=== PATIENT | male | born 1975 | race Caucasian/White ===

== ENCOUNTER 2019-12-09 12:41 | Outpatient (CLI) | payer SELFPAY ==
--- NOTE | 2019-12-09 12:46 | CT_ITS ---
WS: [id number] CT LUMBAR SPINE, noncontrast. HISTORY: Pseudoarthrosis following spinal fusion. TECHNIQUE: Contiguous 2.5 mm axial imaging are performed. Sagittal and coronal reformats are submitte d and reviewed. All CT scans at [facility] use at least one of these dose optimization te chniques: automated exposure control; mA and/or kV adjustment per patient size (includes targeted exa ms where dose is matched to clinical indication); or iterative reconstruction. IV contrast: None DLP: 2142.33 mGycm COMPARISON: 12/11/2018 Posterior lumbar fusion extends from L3 to L5. Pedicle screws and interconnecting rods are unchanged. No increase in the lucency surrounding the pedicle screws. No loosening or fracture. Laminectomy def ects at L3-4 and on the RIGHT at L4-5. L1-2: Normal. L2-3: Mild annular disc bulge and mild osteophytic ridging. No significant stenosis. L3-4: Mild annular disc bulging with very mild encroachment upon the ventral thecal sac with no steno sis. Mild facet joint arthritis. L4-5: Diffuse annular disc bulging and facet arthritis. No significant stenosis. L5-S1: Mild annular disc bulging with a central and LEFT paracentral disc osteophyte protrusion with calcification. Mild contact on the LEFT S1 nerve root and mild encroachment into the RIGHT subarticul ar recess. Moderate bilateral foraminal stenosis is unchanged. Mild atherosclerosis aorta. CT/CT lumbar spine wo con* [id number] IMPRESSION: 1. Status post L3-L5 pedicle screw fixation is intact with no complications. 2. Moderate bilateral foraminal stenosis at L5-S1 is unchanged. 3. Small central and LEFT paracentral disc osteophyte complex at L5-S1 with mi ld encroachment upon the thecal sac. No interval change.
== END 2019-12-09 12:42 | disposition home or self-care (01) ==
LOC: RADWPI 12:45
PROVIDERS: Family Provider Family Medicine; PCP Family Medicine; Visit Provider Specialist
DX: M96.0 Pseudarthrosis after fusion or arthrodesis (principal); M48.07 Spinal stenosis, lumbosacral region; M25.78 Osteophyte, vertebrae
CPT/HCPCS: 72131

== ENCOUNTER → 2019-12-11 11:01 | Outpatient (BNVA) | payer SELFPAY | PROVIDERS: Family Provider Family Medicine; PCP Family Medicine; Visit Provider Licensed Practical Nurse | DX: M96.0 Pseudarthrosis after fusion or arthrodesis (principal) | CPT/HCPCS: 99213 ==

== ENCOUNTER 2020-07-20 05:07 | Emergency (ER) | payer SELFPAY ==
[2020-07-20 05:10] VITALS: BP 255/155; PULSE 86; RESP 18; TEMP 36.4; O2SAT 100; BMI 36.6
--- NOTE | 2020-07-20 05:15 | CTR_ITS ---
PROCEDURE INFORMATION: Exam: CT Abdomen And Pelvis Without Contrast Exam date and time: 07/20/2020 5:17 AM Age: 45 years old Clinical indication: Abdominal pain; Right; Prior surgery; Surgery type: Appy. Lumbar fusion. ; Patient HX: RT flank pain; Additional info: Right flank pain TECHNIQUE: Imaging protocol: Computed tomography of the abdomen and pelvis without contrast. Radiation optimization: All CT scans at this facility use at least one of these dose optimization techniques: automated exposure control; mA and/or kV adjustment per patient size (includes targeted exams where dose is matched to clinical indication); or iterative reconstruction. COMPARISON: No relevant prior studies available. RADIATION DOSE METRICS: Total DLP (mGy-cm): 2170.12 FINDINGS: Lungs: Patchy minimal haziness in the lung bases suggesting atelectasis. Heart: Cardiomegaly. No pericardial effusion. Liver: Unremarkable. No apparent mass. Gallbladder and bile ducts: No calcified gallstones or biliary ductal dilatation. Pancreas: Unremarkable pancreas. Spleen: No splenomegaly. Adrenal glands: Peripheral density of -15 HU around the lobulated central density of 21 HU in the 2.3 x 2.2 cm left adrenal mass. No right adrenal mass. Kidneys and ureters: No hydronephrosis or suggestion of a renal mass. No ureteral stone. Stomach and bowel: Increased fat in the wall of the stomach, duodenum, multiple small bowel loops and the right colon. No increased fat in a segment of small bowel in the right mid abdomen between 2 areas of increased mural fat. Elongation of the sigmoid colon into the middle to lower abdomen. Mild diverticulosis of the distal descending and proximal sigmoid colon. Appendix: History of an appendectomy. Intraperitoneal space: No free air. Vasculature: Atherosclerosis. No aortic aneurysm. Two right renal arteries. Lymph nodes: Periportal adenopathy. No enlarged nodes elsewhere. Urinary bladder: Unremarkable as visualized. Reproductive: Unremarkable as visualized. Bones/joints: Bilateral pedicle screws in L3 through L5 with bilateral posterior rods connecting them. Old compression fractures. Degeneration of several discs. Subchondral defects in the left superior acetabulum. Soft tissues: Density of -10 HU in the 1.8 x 3.2 cm skin-based mass in the right anterior mid abdominal wall; no haziness or stranding in the fat around this mass and no skin thickening overlying it. CT/CT kidney stone [id number] IMPRESSION: 1. Increased fat in the rapp of multiple parts of the GI tract suggesting chronic inflammation. Apparent skip lesion in the right abdominal small bowel, therefore Crohn's disease not excluded. 2. Left adrenal mass probably containing areas of fat suggesting an adenoma or myelolipoma. 3. Cardiomegaly. 4. Periportal adenopathy. 5. Prior lumbar surgery and other bony findings detailed above. 6. Right anterior abdominal wall skin-based mass possibly representing a sebaceous cyst. Other findings detailed above. COMMENTS: Consistent with the [employer]'s Incidental Findings Committee white paper (J Am Saige Radiol 2017): For any incidental adrenal lesion greater than 1 cm but less than 4 cm classified in this report as benign, likely benign, or containing fat (including classification as an adenoma or myelolipoma), no follow-up imaging is recommended per consensus recommendations based on imaging criteria. Further lab evaluation could be pursued if warranted based on clinical findings. Radiation Dose CTDIVOL = (mGy): DLP = 2170.12 (mGy-cm)
--- NOTE | 2020-07-20 05:15 | ED_ITS ---
Documented by User: Andrea Owusu MD 07/20/20 05:18 HPI - Abdominal Pain General: Chief Complaint: Abdominal Pain Stated Complaint: pain in right side Time Seen by Provider: 07/20/20 05:08 Source: patient Mode of arrival: ambulatory Limitations: no limitations History of Present Illness: HPI narrative: 45-year-old male states that he woke up suddenly 1 hour ago with right flank pain and right side abdominal pain that was severe in nature. States his pain is a 10 out of 10 is in obvious pain. He has nausea no vomiting. He denies any history of pain like this denies any history of kidney stone. Patient denies fever. He denies any dysuria. Patient is hypertensive here he states that he has not taken his blood pressure medicine in quite some time. Used to be on amlodipine hydrochlorothiazide and metoprolol. Associated Symptoms: Denies chills and fever(s) Review of Systems Const: Denies: fever(s), chills, body aches or change in appetite Eyes: Denies: blurry vision or eye discomfort ENMT: Denies: throat pain or dental pain Card: Denies: chest pain Resp: Denies: dyspnea GI: Reports: abdominal pain : Reports: flank pain Musc: Denies: neck pain or back pain Skin/Breast: Denies: rash Neuro: Denies: headache(s) Psych: Denies: depression Edmundo/Lymph: Denies: easy bruising All/Imm: Denies: urticaria PFS ED PFSH: Medical History (Updated 07/20/20 @ 08:02 by Bijan Navarro DO) Hypertension Lumbar disc disease Pseudarthrosis following spinal fusion Tobacco use disorder Surgical History H/O spinal fusion 05/07/2017 Dr. Venus Alanis: multilevel discectomy, L3-L4, L4-L5 pedicle screw?jose fixation and transverse process fusion. Family History Family/Other Hypertension Father Stroke Myocardial infarct Family/Other Myocardial infarct Social History Smoking and tobacco status: current every day smoker cigarettes Packs smoked per day: 1.5 Alcohol intake: never Household members: spouse Marital status: Current occupational status: unemployed History of recent travel: No Physical Exam Const: COMMON NORMALS: no acute distress, patient oriented x3 and healthy appearing OTHER: in pain HENMT: COMMON NORMALS: normocephalic and atraumatic HEAD & SCALP: normocephalic and atraumatic Eye: COMMON NORMALS: Equal, round and reactive pupils present and EOMs intact bilaterally PUPIL: Yes Equal, round and reactive pupils present Neck/C-Spine: COMMON NORMALS: full ROM and supple Chest: COMMONS NORMALS: normal inspection of the chest and normal palpation of entire chest wall Resp: COMMON NORMALS: normal respiratory effort, No retractions, No use of accessory muscles and clear to auscultation bilaterally AUSCULTATION: clear to auscultation bilaterally Cardio: COMMON NORMALS: regular rate, regular rhythm and No murmurs present (Cardio) RATE: regular rate RHYTHM: regular rhythm GI: COMMON NORMALS: Normal to inspection, nondistended, normoactive bowel sounds present, Soft to palpation, non-tender and no masses PALPATION: Yes Soft to palpation Extremity: COMMON NORMALS: normal to inspection and full ROM Neuro: COMMON NORMALS: patient oriented x3, moves all extremities and no focal motor deficits Psych: COMMON NORMALS: mental status grossly normal, Normal thought process present and cooperative THOUGHT PROCESS: Normal thought process present Skin: COMMON NORMALS: no rashes or lesions noted and no wounds GENERAL SKIN EXAM: no rashes or lesions noted Course Vital Signs: Vital signs: Vital Signs Temperature 97.6 F 07/20/20 05:10 Pulse Rate 73 07/20/20 08:26 Respiratory Rate 16 07/20/20 08:26 Blood Pressure 146/67 07/20/20 08:26 Pulse Oximetry 95 07/20/20 08:26 MDM - Abdominal Pain Lab Data: Labs: Lab Results 07/20/20 07/20/20 07/20/20 Range/Units 00:59 05:15 05:15 WBC 16.0 H (4.0-10.0) 10^3/ uL RBC 5.85 H (4.1-5.3) 10^6/u L Hgb 16.7 H (11.7-16.6) g/dL Hct 49.7 (42.0-52.0) % MCV 85.0 (80-94) fL MCH 28.5 (28.0-34.0) pg MCHC 33.6 (30.0-36.0) g/dL RDW 13.2 (12.1-15.1) % Plt Count 187 (130-400) 10^3/c mm MPV 11.9 H (7.4-10.4) fL Neut % (Auto) 77.3 % Lymph % (Auto) 14.6 % [place] % (Auto) 5.9 % Eos % (Auto) 1.4 % Baso % (Auto) 0.4 % Neut # (Auto) 12.34 H (1.8-7.7) 10^3/u L Lymph # (Auto) 2.3 (0.8-4.8) 10^3/u L [place] # (Auto) 0.9 (0.2-0.9) 10^3/u L Eos # (Auto) 0.2 (0.0-0.8) 10^3/u L Baso # (Auto) 0.1 (0.0-0.1) 10^3/u L Nucleated RBC % (a uto) 0 % Nucleated RBCs # 0.0 /100WBC Sodium 138 (136-145) mmol/L Potassium 3.9 (3.5-5.1) mmol/L Chloride 100 (98-107) mmol/L Carbon Dioxide 27 (22-29) mmol/L Anion Gap 14.9 (5-19) BUN 16 (6-20) mg/dL Creatinine 1.0 (0.7-1.2) mg/dL GFR Calculation 81.2 L (90-130) mL/min Glucose 125 H (65-115) mg/dL Calculated Osmolal ity 289 (285-295) mOsm/k g Calcium 9.6 (8.5-10.5) mg/dL Total Bilirubin 0.5 (0.15-1.2) mg/dL AST 19 (0-40) U/L ALT 33 (0-41) U/L Alkaline Phosphata se 117 (40-130) IU/L Total Protein 7.5 (6.6-8.7) g/dL Albumin 4.8 (3.5-5.2) g/dL Globulin 2.7 (1.3-4.6) g/dL Lipase 219 H (13-60) U/L Urine Color Yellow (Yellow) Urine Appearance Clear (CLEAR) Urine pH 6.5 (5-7) Ur Specific Gravit y 1.015 (1.005-1.030) Urine Protein Neg (Negative) Urine Glucose (UA) Norm (Normal) Urine Ketones Negative (Negative) Urine Blood Neg (Negative) Urine Nitrate Negative (Negative) Urine Bilirubin Neg (Negative) Urine Urobilinogen Norm (Negative) mg/dL Ur Leukocyte Hamida ase Negative (Negative) Discharge Plan Discharge Patient Disposition: Home Clinical Impression: Abdominal pain, Irritable bowel syndrome (IBS), Hypertension Condition: Stable Prescriptions: New hydrocodone-acetaminophen 5-325 mg tablet 1 tab PO Q6H PRN (Reason: pain) Qty: 15 RF: 0 Zofran 4 mg tablet 4 mg PO Q6H PRN (Reason: nausea and vomiting) Qty: 10 RF: 0 amlodipine 10 mg tablet 10 mg PO DAILY Qty: 30 RF: 0 benazepril 40 mg tablet 40 mg PO DAILY Qty: 30 RF: 0 hydrochlorothiazide 25 mg tablet 25 mg PO DAILY Qty: 30 RF: 0 Toprol XL 25 mg tablet extended release 24 hr 25 mg PO DAILY Qty: 30 RF: 0 No Action benazepril 40 mg tablet 40 mg PO DAILY 30 Days Qty: 30 RF: 1 hydrochlorothiazide 25 mg tablet 25 mg PO QAM 30 Days Qty: 30 RF: 1 metoprolol succinate 25 mg tablet extended release 24 hr 25 mg PO DAILY 30 Days Qty: 30 RF: 1 amlodipine 10 mg tablet 10 mg PO DAILY 30 Days Qty: 30 RF: 1 Discharge Orders: Discharge ED (Routine); Ordered 07/20/20 Ordered By: Bijan Navarro Referrals: Justyna Calhoun DO [Primary Care Provider] - Discharge Diet: Clear Liquid Discharge Activity: Increase activity as tolerated Patient Instructions: Abdominal Pain (ED), Opioid Safety Activity Restrictions/Additional Instructions: Liquid diet for 24 to 48 hours and advance as tolerated. Recommend you restart your blood pressure medications immediately. Case management will make arrangements for you to see surgery for your abdominal pain and possible endoscopy. Sign Out Sign Out Data: Patient Sign Out occurred on 07/20/20 at 05:54. Patient's care was discussed, and care was transferred from to Bijan Navarro DO. Coding Level of Care Code ED Talent Acquisition Program Manager for Chg Fwd Exam Comprehensive Documented by User: Bijan Navarro DO 07/20/20 08:51 HPI - Abdominal Pain General: Chief Complaint: Abdominal Pain Stated Complaint: pain in right side Time Seen by Provider: 07/20/20 05:08 PFSH ED PFSH: Medical History (Updated 07/20/20 @ 08:02 by Bijan Navarro DO) Hypertension Lumbar disc disease Pseudarthrosis following spinal fusion Tobacco use disorder Surgical History H/O spinal fusion 05/07/2017 Dr. Venus Alanis: multilevel discectomy, L3-L4, L4-L5 pedicle screw?jose fixation and transverse process fusion. Family History Family/Other Hypertension Father Stroke Myocardial infarct Family/Other Myocardial infarct Social History Smoking and tobacco status: current every day smoker cigarettes Packs smoked per day: 1.5 Alcohol intake: never Household members: spouse Marital status: Current occupational status: unemployed History of recent travel: No Course Vital Signs: Vital signs: Vital Signs Temperature 97.6 F 07/20/20 05:10 Pulse Rate 73 07/20/20 08:26 Respiratory Rate 16 07/20/20 08:26 Blood Pressure 146/67 07/20/20 08:26 Pulse Oximetry 95 07/20/20 08:26 MDM - Abdominal Pain MDM Narrative: Medical decision making narrative: Viewed CT findings with him. Given hydralazine all of his p.o. blood pressure medicines will restart p.o. blood pressure medicines and we did discharge him home with a plan to follow-up with surgery for endoscopy based on the CT findings and Jeannie establish with a primary care for the hypertension. His lipase elevated but he has no elevation of his liver enzymes and he has no left upper quadrant abdominal pain he denies drinking any alcohol. He will need follow-up on that as well his symptoms are improved at this time. Liver functions are normal he has no other findings on his CT I think we can discharge him home at this time with the appropriate follow-ups. Lab Data: Labs: Lab Results 07/20/20 07/20/20 07/20/20 Range/Units 00:59 05:15 05:15 WBC 16.0 H (4.0-10.0) 10^3/ uL RBC 5.85 H (4.1-5.3) 10^6/u L Hgb 16.7 H (11.7-16.6) g/dL Hct 49.7 (42.0-52.0) % MCV 85.0 (80-94) fL MCH 28.5 (28.0-34.0) pg MCHC 33.6 (30.0-36.0) g/dL RDW 13.2 (12.1-15.1) % Plt Count 187 (130-400) 10^3/c mm MPV 11.9 H (7.4-10.4) fL Neut % (Auto) 77.3 % Lymph % (Auto) 14.6 % [place] % (Auto) 5.9 % Eos % (Auto) 1.4 % Baso % (Auto) 0.4 % Neut # (Auto) 12.34 H (1.8-7.7) 10^3/u L Lymph # (Auto) 2.3 (0.8-4.8) 10^3/u L [place] # (Auto) 0.9 (0.2-0.9) 10^3/u L Eos # (Auto) 0.2 (0.0-0.8) 10^3/u L Baso # (Auto) 0.1 (0.0-0.1) 10^3/u L Nucleated RBC % (a uto) 0 % Nucleated RBCs # 0.0 /100WBC Sodium 138 (136-145) mmol/L Potassium 3.9 (3.5-5.1) mmol/L Chloride 100 (98-107) mmol/L Carbon Dioxide 27 (22-29) mmol/L Anion Gap 14.9 (5-19) BUN 16 (6-20) mg/dL Creatinine 1.0 (0.7-1.2) mg/dL GFR Calculation 81.2 L (90-130) mL/min Glucose 125 H (65-115) mg/dL Calculated Osmolal ity 289 (285-295) mOsm/k g Calcium 9.6 (8.5-10.5) mg/dL Total Bilirubin 0.5 (0.15-1.2) mg/dL AST 19 (0-40) U/L ALT 33 (0-41) U/L Alkaline Phosphata se 117 (40-130) IU/L Total Protein 7.5 (6.6-8.7) g/dL Albumin 4.8 (3.5-5.2) g/dL Globulin 2.7 (1.3-4.6) g/dL Lipase 219 H (13-60) U/L Urine Color Yellow (Yellow) Urine Appearance Clear (CLEAR) Urine pH 6.5 (5-7) Ur Specific Gravit y 1.015 (1.005-1.030) Urine Protein Neg (Negative) Urine Glucose (UA) Norm (Normal) Urine Ketones Negative (Negative) Urine Blood Neg (Negative) Urine Nitrate Negative (Negative) Urine Bilirubin Neg (Negative) Urine Urobilinogen Norm (Negative) mg/dL Ur Leukocyte Hamida ase Negative (Negative) Discharge Plan Discharge Patient Disposition: Home Clinical Impression: Abdominal pain, Irritable bowel syndrome (IBS), Hypertension Condition: Stable Prescriptions: New hydrocodone-acetaminophen 5-325 mg tablet 1 tab PO Q6H PRN (Reason: pain) Qty: 15 RF: 0 Zofran 4 mg tablet 4 mg PO Q6H PRN (Reason: nausea and vomiting) Qty: 10 RF: 0 amlodipine 10 mg tablet 10 mg PO DAILY Qty: 30 RF: 0 benazepril 40 mg tablet 40 mg PO DAILY Qty: 30 RF: 0 hydrochlorothiazide 25 mg tablet 25 mg PO DAILY Qty: 30 RF: 0 Toprol XL 25 mg tablet extended release 24 hr 25 mg PO DAILY Qty: 30 RF: 0 No Action benazepril 40 mg tablet 40 mg PO DAILY 30 Days Qty: 30 RF: 1 hydrochlorothiazide 25 mg tablet 25 mg PO QAM 30 Days Qty: 30 RF: 1 metoprolol succinate 25 mg tablet extended release 24 hr 25 mg PO DAILY 30 Days Qty: 30 RF: 1 amlodipine 10 mg tablet 10 mg PO DAILY 30 Days Qty: 30 RF: 1 Discharge Orders: Discharge ED (Routine); Ordered 07/20/20 Ordered By: Bijan Navarro Referrals: Justyna Calhoun DO [Primary Care Provider] - Discharge Diet: Clear Liquid Discharge Activity: Increase activity as tolerated Patient Instructions: Abdominal Pain (ED), Opioid Safety Activity Restrictions/Additional Instructions: Liquid diet for 24 to 48 hours and advance as tolerated. Recommend you restart your blood pressure medications immediately. Case management will make arrangements for you to see surgery for your abdominal pain and possible endoscopy. Sign Out Sign Out Data: Patient Sign Out occurred on 07/20/20 at 05:54. Patient's care was discussed, and care was transferred from to Bijan Navarro DO. Coding Level of Care Code ED Talent Acquisition Program Manager for Chg Fwd Exam Comprehensive
[2020-07-20 05:23] VITALS: RESP 17; O2SAT 99
[2020-07-20] MEDS: ondansetron 2 mg/ML SDV 2 mL 4 MG IVP (05:23)
[2020-07-20] MEDS: HYDROmorphone 1 mg/mL INJ 1 mL IVP (05:23)
[2020-07-20 05:24] LABS: Basophils # 0.1 10^3/uL (0.0-0.1); Basophils % 0.4 %; Eosinophils # 0.2 10^3/uL (0.0-0.8); Eosinophils % 1.4 %; Hematocrit 49.7 % (42.0-52.0); Hemoglobin 16.7 g/dL (11.7-16.6); Lymphocytes # 2.3 10^3/uL (0.8-4.8); Lymphocytes % 14.6 %; Mean Corpuscular HGB Conc 33.6 g/dL (30.0-36.0); Mean Corpuscular Hemoglobin 28.5 pg (28.0-34.0); Mean Platelet Volume 11.9 fL (7.4-10.4); Monocytes # 0.9 10^3/uL (0.2-0.9); Monocytes % 5.9 %; Neutrophils # 12.34 10^3/uL (1.8-7.7); Neutrophils % 77.3 %; Nucleated Red Blood Cells % 0 %; Platelet Count 187 10^3/cmm (130-400); Red Blood Count 5.85 10^6/uL (4.1-5.3); Red Cell Distribution Width 13.2 % (12.1-15.1)
[2020-07-20] MEDS: sodium chloride 0.9% 1,000 ML 999 ML IV (05:24)
[2020-07-20 05:44] LABS: Alanine Aminotransferase 33 U/L (0-41); Albumin Level 4.8 g/dL (3.5-5.2); Alkaline Phosphatase 117 IU/L (40-130); Aspartate Amino Transferase 19 U/L (0-40); Blood Urea Nitrogen 16 mg/dL (6-20); Calcium 9.6 mg/dL (8.5-10.5); Carbon Dioxide 27 mmol/L (22-29); Chloride 100 mmol/L (98-107); Globulin 2.7 g/dL (1.3-4.6); Glomerular Filtration Rate 81.2 mL/min (90-130); Glucose 125 mg/dL (65-115); Lipase 219 U/L (13-60); Osmolality Calculated 289 mOsm/kg (285-295); Sodium 138 mmol/L (136-145); Total Bilirubin 0.5 mg/dL (0.15-1.2); Total Protein 7.5 g/dL (6.6-8.7)
[2020-07-20 05:54] LABS: Anion Gap 14.9 (5-19); Potassium 3.9 mmol/L (3.5-5.1)
[2020-07-20 06:10] VITALS: BP 226/124; PULSE 78; RESP 17; O2SAT 96
[2020-07-20 06:41] LABS: Add Urine Microscopic? NO; Bilirubin Urine Neg (Negative); Blood Urine Neg (Negative); Glucose Urine UA Norm (Normal); Ketones Urine Negative (Negative); Leukocyte Esterase Urine Negative (Negative); Nitrate Urine Negative (Negative); Protein Urine Neg (Negative); Specific Gravity, Urine 1.015 (1.005-1.030); Urine Appearance Clear (CLEAR); Urine Color Yellow (Yellow); Urobilinogen Urine Norm (Negative); pH Urine 6.5 (5-7)
[2020-07-20 06:43] LABS: Charge for UA Resulting for Rev
[2020-07-20 06:55] VITALS: RESP 16; O2SAT 95
[2020-07-20] MEDS: morphine 4 mg/mL SDV 1 mL 6 MG IVP (06:55)
[2020-07-20 06:57] VITALS: BP 209/108; PULSE 76; RESP 17; O2SAT 95
[2020-07-20] MEDS: hydroCHLOROthiazide 25 mg Tablet PO (07:34)
[2020-07-20] MEDS: amlodipine 10 mg Tablet PO (07:34)
[2020-07-20] MEDS: hyDRALAzine 20 mg/mL INJ 1 mL IVP (07:34)
[2020-07-20] MEDS: metoprolol succinate ER (24 HR) 25 mg Tablet PO (08:01)
[2020-07-20] MEDS: lisinopril 20 mg Tablet 40 MG PO (08:02)
[2020-07-20 08:26] VITALS: BP 146/67; PULSE 73; RESP 16; O2SAT 95
--- NOTE | 2020-07-20 12:32 | DCPLANNER ---
unix manager had message to schedule a followup appointment for patient with general surgery for endoscopy for abnormal CT. unix manager emailed patients information to both Misti and Jessica at [facility] general surgery. Patients information will be printed and reviewed. Clinic will call patient with appointment information.
--- NOTE | 2020-07-21 12:25 | DCPLANNER ---
software release manager had message to speak with patient about getting established with a primary care physician. software release manager spoke with patient, he stated that he would like to be established at the [facility]. software release manager called the clinic in [facility], gave clinic patients information. A follow up appointment was scheduled for , July 29, 2020 at 1:[address] Lopez. software release manager called patient and gave him the appointment information.
--- NOTE | 2020-07-23 08:05 | DCPLANNER ---
Patient has a follow up appointment scheduled for , July 29, 2020 at 10:[address] Bautista at [facility] General Surgery. Clinic will call patient with appointment information.
--- NOTE | 2020-08-17 08:26 | DCPLANNER ---
Patient had a follow up appointment scheduled for 07.29.[address] Lopez at the [facility] to establish care - patient did attend appointment.
--- NOTE | 2020-09-10 08:03 | DCPLANNER ---
Patient had a follow up appointment scheduled for 07.29.[address] Bautista at general surgery - patient did attend appointment.
== END 2020-07-20 08:28 | disposition home or self-care (01) ==
PROVIDERS: Emergency Medicine; Emergency Provider Family Medicine; PCP Family Medicine
DX: K58.9 Irritable bowel syndrome, unspecified (principal); I10 Essential (primary) hypertension; F17.210 Nicotine dependence, cigarettes, uncomplicated
CPT/HCPCS: 74176; 80053; 81003; 83690; 85025; 96361; 96374; 96375; 96376; 99284; J0360; J1170; J2270; J2405; J7030

== ENCOUNTER 2020-08-26 09:26 | Outpatient (CLI) | payer SELFPAY ==
--- NOTE | 2020-08-26 10:00 | FL_ITS ---
WS: [id number] Small bowel follow-through, 08/26/2020 Clinical Data: Z87.898 - Personal history of other specified conditions Comparison: None. Fluoroscopy time: 0.4 minutes. Findings: There is a large amount of fecal material throughout the colon. The patient's had a posterior lumbar fusion at L3-L5 with bilateral pedicle screws and connecting rods. The patient swallowed the barium f lowed through the stomach and proceeded through the small bowel. At 90 minutes post ingestion the asc ending colon was filled. The duodenum, jejunum and ileum showed no intraluminal defects. There is no internal hernia, evidence of obstruction or stenosis. Compression films of the terminal ileum demonst rated no abnormalities. FL/[place] gastro [id number] Impression: Negative small bowel series with no evidence of Crohn's disease.
== END 2020-08-26 09:27 | disposition home or self-care (01) ==
PROVIDERS: PCP Family Medicine; Visit Provider Surgery
DX: Z87.898 Personal history of other specified conditions (principal)
CPT/HCPCS: 74250

== ENCOUNTER 2020-12-06 07:49 | Outpatient (CLI) | payer SELFPAY ==
--- NOTE | 2020-12-06 08:00 | CT_ITS ---
WS: [id number] CT LUMBAR SPINE, noncontrast. HISTORY: S/P fusion/fixation TECHNIQUE: Contiguous 2.5 mm axial imaging are performed. Sagittal and coronal reformats are submitte d and reviewed. All CT scans at [facility] use at least one of these dose optimization te chniques: automated exposure control; mA and/or kV adjustment per patient size (includes targeted exa ms where dose is matched to clinical indication); or iterative reconstruction. IV contrast: None DLP: 2142.33 mGycm COMPARISON: 12/09/2019 Prior posterior lumbar fusion extends from L3 through L5. Pedicle screws and vertical rods appear int act with no fractures. No lucency around the hardware. L3 retrolisthesis by 4 mm is similar to the pr ior examination. Mild disc space narrowing from L3-4 through L5-S1. No fractures. L1-2: Normal. L2-3: Mild bilateral facet joint arthritis. No stenosis. L3-4: Diffuse annular disc bulging and osteophytic ridging. Moderate facet joint arthritis. Partial f usion across the LEFT facet joint with progression since the prior examination. Mild bilateral forami nal narrowing and mild central stenosis. No focal disc protrusion. L4-5: Bilateral facet joint arthritis. No change in appearance of the facet joints. L5-S1: Mild annular disc bulging and osteophytic ridging. Focal osteophyte posteriorly encroaches upo n the central and LEFT paracentral thecal sac. This may be partially calcified disc or osteophyte. Bi lateral foraminal disc protrusions, LEFT greater than RIGHT. Disc protrusions are slightly more promi nent as compared to the prior examination. Moderate to severe bilateral foraminal stenosis. Partially visualized LEFT adrenal nodule is probably an adenoma which is been previous the described. Mild atherosclerosis aorta. Asymmetry of the muscles of the RIGHT pelvis. Atrophied muscles of the L EFT pelvis. CT/CT lumbar spine wo con* [id number] IMPRESSION: 1. Status post posterior lumbar fusion from L3 to L5 appears intact. No loosen ing or fracture. 2. Moderate to severe bilateral foraminal stenosis at L5-S1 due to combination of osteophytes and foraminal disc protrusions. Minimal progression since the p rior study. 3. Partial bony fusion across the LEFT facet joint at L3-4 has progressed sinc e the prior study. 4. Mild central and bilateral foraminal stenosis at L3-4, no significant calderon e.
== END 2020-12-06 07:50 | disposition home or self-care (01) ==
PROVIDERS: Visit Provider Licensed Practical Nurse
DX: M96.0 Pseudarthrosis after fusion or arthrodesis (principal); M48.061 Spinal stenosis, lumbar region without neurogenic claudication; M48.07 Spinal stenosis, lumbosacral region; M43.26 Fusion of spine, lumbar region
CPT/HCPCS: 72131

== ENCOUNTER → 2022-05-30 08:06 | Outpatient (BNVA) | payer SELFPAY | PROVIDERS: PCP Family Medicine; Visit Provider Family Medicine | DX: J44.9 Chronic obstructive pulmonary disease, unspecified (principal); I10 Essential (primary) hypertension | CPT/HCPCS: 80053; 80061; 85025 ==

== ENCOUNTER → 2024-12-31 08:40 | Outpatient (BNVA) | payer SELFPAY | PROVIDERS: PCP Family Medicine; Visit Provider Family Medicine | DX: I10 Essential (primary) hypertension (principal) | CPT/HCPCS: 80053; 80061; 83721 ==

== ENCOUNTER → 2025-02-24 08:01 | Outpatient (BNVA) | payer SELFPAY | PROVIDERS: PCP Family Medicine; Visit Provider Internal Medicine Cardiovascular Disease | DX: R07.9 Chest pain, unspecified (principal); I45.89 Other specified conduction disorders | CPT/HCPCS: 93005 ==